=== PATIENT | female | born 1990 | race Caucasian/White ===

== ENCOUNTER 2020-11-15 02:19 | Emergency (ER) | payer OTHER ==
[~2020-11-15] VITALS: Ht 167.6 cm; Wt 61.2 kg
[2020-11-15 02:36] LABS: URINE BILIRUBIN NEGATIVE (Negative); URINE BLOOD TRACE (Negative); URINE CLARITY CLEAR; URINE COLOR YELLOW; URINE GLUCOSE-RANDOM NEGATIVE (Negative); URINE KETONES NEGATIVE (Negative); URINE LEUKOCYTES-REFLEX NEGATIVE (Negative); URINE PROTEIN NEGATIVE (Negative); URINE SPECIFIC GRAVITY 1.025 (1.005-1.030)
[2020-11-15 02:44] LABS: CASTS None Seen /LPF (None Seen); SQUAMOUS 0-3 Few /LPF (0-3); URINE NITRITE-REFLEX POSITIVE (Negative)
[2020-11-15 02:45] LABS: BACTERIA-REFLEX >30 Many /HPF (None Seen); CRYSTALS None Seen /LPF (None Seen); URINE RBC 3-10 Few /HPF (0-2); URINE WBC-REFLEX 0-5 Rare /HPF (0-5)
[2020-11-15] MEDS ORDERED: DOXYCYCLINE 10100 MG PO (03:07)
[2020-11-15 03:15] VITALS: BP 120/76
== END 2020-11-15 03:16 | disposition home or self-care (01) ==
LOC: M.ERS 02:19
PROVIDERS: Emergency Medicine
DX: N94.6 Dysmenorrhea, unspecified (principal); R10.32 Left lower quadrant pain; F17.210 Nicotine dependence, cigarettes, uncomplicated; Z88.0 Allergy status to penicillin; Z86.19 Personal history of other infectious and parasitic diseases